=== PATIENT | female | born 1955 | race Caucasian/White ===

== ENCOUNTER 2025-02-01 16:00 | Observation (INO) ==
[2025-02-01 16:36] LABS: Hematocrit (blood only) 41.1 % (37.0-47.0); Hemoglobin 13.4 g/dl (12.0-16.0); Immature Granulocytes # (auto) 0.03 K/uL (0.01-0.20); Immature Granulocytes % (auto) 0.3 %; Mean Corpuscular Hemoglobin 27.9 pg (25.0-34.0); Mean Corpuscular Volume 85.4 fL (80.0-100.0); Platelet Count 284 K/uL (130-400); RDW Standard Deviation 39.7 fL (36.4-46.3); Red Blood Count 4.81 M/uL (4.20-5.40); White Blood Count 9.05 K/ul (4.8-10.8)
[2025-02-01 16:49] LABS: Alanine Aminotransferase 15.0 U/L (7-52); Albumin Globulin Ratio 1.5 (0.9-2); Alkaline Phosphatase 77.0 U/L (34-104); Anion Gap 5.0 (3-11); Bilirubin,Total 0.3 mg/dl (0.2-1.0); Blood Urea Nitrogen 19.0 mg/dl (6-23); Calcium 9.1 mg/dl (8.6-10.3); Carbon Dioxide 31.0 mmol/L (21-32); Chloride 104.0 mmol/L (98-107); Creatinine Clr Calc Pharmacy 91.8 ml/min; Globulin 2.8 gm/dl (2.5-4.0); Glucose 244.0 mg/dl (70-99(Fasting)); Potassium 3.8 mmol/L (3.5-5.1); Sodium 140.0 mmol/L (136-145); Total Protein 6.9 gm/dl (6.0-8.3)
--- NOTE | 2025-02-01 16:50 | XRay Report ---
EXAM: X-ray chest one-view not portable CLINICAL HISTORY: Shortness of breath while walking PRIORS: None TECHNIQUE: Frontal view chest FINDINGS: Patient slightly rotated. The chest is well-expanded. No airspace consolidation, effusion or congestive changes. Heart size is normal. No pneumothorax. Trachea is patent. Osseous structures demonstrate no acute abnormality. No radiopaque foreign body. IMPRESSION: No plain film evidence of an acute cardiopulmonary process. Electronically signed by Adeola Bustamante 02-01-2025 4:49 PM
[2025-02-01 17:00] LABS: INR 1.0 (0.9-1.1); Partial Thromboplastin Time 25 Seconds (21-31); Prothrombin Time 10.6 Seconds (9.0-12.0)
[2025-02-01] MEDS: OPTIRAY 320 125ml IV ONE (18:42)
--- NOTE | 2025-02-01 19:43 | CT Scan Report ---
EXAMINATION: CT angio chest PE protocol CLINICAL HISTORY: Dyspnea several weeks PRIORS: Chest radiograph today TECHNIQUE: Contiguous axial images were obtained through the chest with the use of intravenous contrast. Sagittal and coronal reformations are supplied. FINDINGS: The pulmonary arteries are well opacified Motion artifact noted through the chest and mediastinum. No central or segmental pulmonary embolism identified. Mild to moderate enlargement of the heart size. No pleural or pericardial effusion. No adenopathy. Trachea and mainstem bronchi are patent. Thyroid size is normal. In lung windows, no pneumonia, dominant mass or groundglass attenuation. Limited visualization of the upper abdomen shows hepatomegaly and fatty infiltration of the liver. In bone windows degenerative change with no acute osseous abnormality. IMPRESSION: 1. No CT evidence of acute cardiopulmonary process. 2. Mild cardiomegaly 3. Hepatomegaly and fatty infiltration of the liver Electronically signed by Adeola Bustamante 02-01-2025 7:42 PM
--- NOTE | 2025-02-01 19:58 | Emergency Department Note ---
Impression & Plan Dyspnea on exertion, Hypoxia, Chest pressure ED Provider Note NAME: CAROLIN YODER AGE: 69 SEX: Female INFORMANT: Patient ED PROVIDER(S): Felipe Zaman MD CHIEF COMPLAINT: Dyspnea on exertion and chest pain PLAN: Disposition: Admitted Outpatient prescription management: none Referral: None MEDICAL DECISION MAKING: Patient presented because of shortness of breath and chest discomfort that she described as pressure. This was with exertion. Saw PCP and O2 saturations were documented at 86%. Patient notes no prior lung problems. Workup was done. Patient was mildly hyperglycemic otherwise chemistries and cardiac troponin negative. BNP negative. Patient underwent CT PE study and this was negative. Patient did have septal and inferior Q waves noted on ECG. No ST elevation or depression. Further evaluation and management will be appropriate to evaluate this current situation. Consultation was made with Dr. Valentin Dalton of the [facility] service. Patient was evaluated in the ER for further management. Care/management discussed with: it manager Level of care consideration(s): After review of the information above and other included data, I feel the patient requires escalation of care to admission Triage Nursing notes: reviewed and agree them. Vital Signs: reviewed and remarkable for hypertension Additional History obtained from: none Chronic Medical/Social Conditions affecting care: Diabetes and hypertension Prior/ Outside/ External records reviewed: none Differential Diagnosis: Reactive airway disease, pneumonia, pneumothorax, COPD, CHF, infections, cardiac ischemia, pulmonary embolism, musculoskeletal, gastrointestinal, as well as other pathologies. Diagnostics, independently interpreted by me: ECG: Twelve-lead ECG reveals a normal sinus rhythm at 85 bpm. Septal Q wave in inferior Q wave present. No ST elevation. Cardiac Monitoring: Cardiac monitoring ordered by me: The patient was placed on continuous cardiac monitoring and observed. It revealed a normal sinus rhythm at 68 beats per minute without ectopy or evidence of dysrhythmia. Medical decision rules: none Imaging studies: Chest x-ray. Findings: A chest x-ray was performed and revealed no pneumothorax, effusion, infiltrate, pulmonary edema, free air under the diaphragm, or wide mediastinum. Impression: No acute disease. CT scan of the chest is negative for pulmonary embolus. I refer you to the EMR for further details. HPI: 69 year old Female arrives for evaluation of dyspnea on exertion. Patient was referred by her primary physician at the [facility] today due to low oxygen levels of 86%. Patient was there for 6-month checkup and noted over the last several weeks that she has been having significant dyspnea on exertion and shortness of breath. She is also getting chest pressure. Primary care physician saw the patient and was concerned. Checked oxygen level and it was low. Referred to the ER with concerns of possible PE or cardiac etiology. Patient notes a history of having some shortness of breath issues in the past but never had these types of symptoms like she has had with exertion over the last 3 weeks. Patient denies any current pain. Rest noted as relieving factors. Patient does note she has had some leg swelling. Pt denies LOC, headache, fevers, chills, diaphoresis, visual changes, neck pain, nausea, vomiting, abdominal pain, back pain, melena, hematochezia, urinary symptoms, numbness, weakness, lymphadenopathy, rash, or other complaints.. PAST MEDICAL HISTORY: See Below, diabetes, hypertension PAST SURGICAL HISTORY: See Below, SOCIAL HISTORY: See Below, non-smoker HOME MEDICATIONS: See Below ALLERGIES: See Below VITALS: See Below PHYSICAL EXAMINATION: GENERAL: Awake, alert, [id number], in no distress HENT: Normocephalic, atraumatic. Oropharynx unremarkable. EYES: Normal conjunctiva. Sclera non-icteric. NECK: Inspection normal. Non-tender. Supple. No nuchal rigidity. FROM. No masses. RESPIRATORY: Clear to auscultation. No wheezes. No rales. Normal respiratory effort. CARDIAC: Normal rate. Normal rhythm. No murmurs. No rubs. Extremities warm and well perfused. Pulses equal. No JVD. GI: Soft, non-distended. No tenderness to palpation. No rebound or guarding. No masses. RECTAL: Deferred. MUSCULOSKELETAL: Atraumatic. Chest examination reveals no tenderness. The back is symmetrical on inspection without obvious abnormality. There is no CVA tenderness to palpation. No joint edema. LOWER EXTREMITIES: Calves are equal size bilaterally and minimally tender. No palpable cords. Negative Homans' sign. Trace edema. No discoloration. NEURO: Normal sensorium. No sensory or motor deficits noted. SKIN: No rash or jaundice noted. PROCEDURES: none CRITICAL CARE: none OBSERVATION NOTE: none Past Med/Surg History Problem List (Updated 02/01/25 @ 19:58 by Felipe Zaman MD) Chest pressure (Acute) Hypoxia (Acute) Dyspnea on exertion (Acute) Fibromyalgia ERAN (obstructive sleep apnea) Venous insufficiency Diabetic neuropathy Depression with anxiety Hypertension Hypothyroidism History of breast biopsy Diabetes mellitus Surgical History H/O: hysterectomy H/O laparoscopy H/O arthroscopy of right knee History of esophagogastroduodenoscopy (EGD) H/O cystoscopy H/O colonoscopy Family History Mother Breast cancer Denies family history of Ovarian cancer Prostate cancer Heart disease Myocardial infarction Hypertension Social History Smoking Status: Never smoker Second Hand Exposure: No; Do You Dip or Chew Tobacco: No; Tobacco Cessation Education Requested by Patient: No Hx Alcohol Use: No Hx Substance Use: No Preferred Language: Arabic Communication Ability: Effective Allergy And Immunology Chief Required: No Beliefs That Will Affect Care: None marital status: Single Current Living Situation: Significant Other Current Living Situation Comment: Skills current occupational status: employed How many Children do You have: 2 Other Information That Helps Us Care for You: No Feels Safe at Home: Yes Safety Concerns: Feels Safe At This Time Childhood Exposure to Second-Hand Smoke: No Dental Care, Regularly: Yes Seatbelt Use: always Sunscreen Use: Yes Assistive Devices: CPAP and Glasses Allergies Allergies Allergy/AdvReac Type Severity Reaction Status Date / Time latex Allergy Anaphylaxis Verified 02/01/25 18:35 No Known Drug Allergies Allergy . Verified 02/01/25 18:35 Home Meds Home Medications Medication Instructions Recorded Confirmed CPAP Supplies 08/05/23 02/01/25 fluticasone propionate 50 2 spray intranasal DAILY 08/05/23 02/01/25 mcg/actuation nasal spray,suspension (Allergy Relief (fluticasone)) lancets 25 gauge 08/05/23 02/01/25 nitroglycerin 0.4 mg sublingual 0.4 mg sublingual Q5M PRN Chest 08/05/23 02/01/25 tablet Pain potassium gluconate 595 mg (99 mg) 595 mg PO DAILY 08/05/23 02/01/25 tablet furosemide 20 mg tablet 20 mg PO DAILY PRN Edema 02/01/25 02/01/25 insulin glargine 100 unit/mL (3 72 unit subcut QAM 02/01/25 02/01/25 mL) subcutaneous pen (Lantus Solostar U-100 Insulin) Previous Rx's Medication Instructions Recorded lancets (Accu-Chek Softclix #100 ea 10/04/23 Lancets) cyanocobalamin (vitamin B-12) 1,000 mcg sublingual DAILY #30 tabs 12/14/23 1,000 mcg sublingual tablet metformin 1,000 mg tablet 1,000 mg PO BID #360 tabs 01/03/24 pen needle, diabetic 32 gauge x #100 ea 03/08/24" (BD Mariaelena 2nd Gen Pen Needle) paroxetine HCl 40 mg tablet 40 mg PO DAILY #90 tabs 06/15/24 atorvastatin 40 mg tablet 40 mg PO DAILY #90 tabs 06/21/24 fenofibrate nanocrystallized 48 mg 48 mg PO DAILY #90 tabs 06/21/24 tablet levothyroxine 88 mcg tablet 88 mcg PO DAILY #90 tabs 06/21/24 (Levo-T) lisinopril 20 mg tablet 20 mg PO DAILY #30 tabs 06/21/24 lisinopril 20 1 tab PO DAILY #90 tabs 06/21/24 mg-hydrochlorothiazide 25 mg tablet omeprazole 40 mg capsule,delayed 40 mg PO DAILY #90 caps 06/21/24 release trazodone 100 mg tablet 100 mg PO DAILY #90 tabs 06/21/24 blood sugar diagnostic (True #100 ea 01/02/25 Metrix Glucose Test Strip) glimepiride 1 mg tablet 1 mg PO QAM #90 tabs 01/24/25 cyclobenzaprine 10 mg tablet 10 mg PO TID PRN muscle spasm #20 02/01/25 tabs magnesium oxide 400 mg (241.3 mg 400 mg PO DAILY #30 tabs 02/01/25 magnesium) tablet Results & Data (ED) Vital Signs Vital Signs - 24 hr 02/01/25 16:07 02/01/25 17:19 02/01/25 17:50 Pulse Rate 90 79 Pulse Rate [Left Finger] 83 Pulse Rhythm Pulse Rhythm [Left Finger] Regular Pulse Strength [Left Finger] Normal Respiratory Rate 17 20 Respiratory Effort / Characteristics Non-Labored Spontaneous Non-Labored Spontaneous Respiratory Depth Normal Normal Respiratory Pattern Regular Regular Blood Pressure 148/72 H Blood Pressure [Left Arm] 115/80 Blood Pressure Mean 97 Blood Pressure Mean [Left Arm] 91 Blood Pressure Position Sitting Blood Pressure Position [Left Arm] Sitting Pulse Oximetry 92 98 Oxygen Delivery Method Room Air Room Air Sepsis Recent Fever Within 48 Hours No Sepsis New/Unexplained Change in Mental Status N/A Sepsis Action Taken by Nursing No Action Required 02/01/25 19:00 02/01/25 19:15 02/01/25 19:15 Pulse Rate 76 Pulse Rate [Left Finger] 77 Pulse Rhythm Regular Pulse Rhythm [Left Finger] Regular Pulse Strength [Left Finger] Normal Respiratory Rate 18 18 Respiratory Effort / Characteristics Non-Labored Spontaneous Respiratory Depth Normal Respiratory Pattern Regular Blood Pressure Blood Pressure [Left Arm] 152/69 H Blood Pressure Mean Blood Pressure Mean [Left Arm] 96 Blood Pressure Position Blood Pressure Position [Left Arm] Semi-fowlers Pulse Oximetry 97 97 97 Oxygen Delivery Method Room Air Room Air Room Air Sepsis Recent Fever Within 48 Hours Sepsis New/Unexplained Change in Mental Status Sepsis Action Taken by Nursing Laboratory Data 02/01/25 16:19 02/02/25 09:08 Lab Results 02/01/25 02/01/25 Range/Units 16:19 18:16 WBC 9.05 (4.8-10.8) K/ul RBC 4.81 (4.20-5.40) M/uL Hgb 13.4 (12.0-16.0) g/dl Hct 41.1 (37.0-47.0) % MCV 85.4 (80.0-100.0) fL MCH 27.9 (25.0-34.0) pg MCHC 32.6 (32.0-36.0) g/dL RDW Std Deviation 39.7 (36.4-46.3) fL RDW Coeff of Romi 12.9 (11.5-14.5) % Plt Count 284 (130-400) K/uL MPV 9.1 L (9.4-12.4) fL Immature Gran % (Auto) 0.3 % Neut % (Auto) 65.6 % Lymph % (Auto) 26.4 % [place] % (Auto) 6.0 % Eos % (Auto) 1.3 % Baso % (Auto) 0.4 % Neut # (Auto) 5.93 (1.40-6.50) K/uL Lymph # (Auto) 2.39 (1.20-3.40) K/uL [place] # (Auto) 0.54 (0.11-0.59) K/uL Eos # (Auto) 0.12 (0.00-0.50) K/uL Baso # (Auto) 0.04 (0.00-0.20) K/uL Immature Gran # (Auto) 0.03 (0.01-0.20) K/uL PT 10.6 (9.0-12.0) Seconds INR 1.0 (0.9-1.1) APTT 25 (21-31) Seconds PTT Ratio 0.9 Sodium 140 (136-145) mmol/L Potassium 3.8 (3.5-5.1) mmol/L Chloride 104 (98-107) mmol/L Carbon Dioxide 31 (21-32) mmol/L Anion Gap 5 (3-11) BUN 19 (6-23) mg/dl Creatinine 0.82 (0.6-1.2) mg/dl Est Cr Clr Drug Dosing 91.8 ml/min eGFR 77.87 BUN/Creatinine Ratio 23.2 H (10-20) Glucose 244 H (70-99(Fasting)) mg/dl Calcium 9.1 (8.6-10.3) mg/dl Total Bilirubin 0.3 (0.2-1.0) mg/dl AST 14 (13-39) U/L ALT 15 (7-52) U/L Alkaline Phosphatase 77 (34-104) U/L Troponin I High Sens 3.9 (0-14) pg/ml B-Natriuretic Peptide 24 (0-100) pg/ml Total Protein 6.9 (6.0-8.3) gm/dl Albumin 4.1 (3.4-5.0) gm/dl Globulin 2.8 (2.5-4.0) gm/dl Albumin/Globulin Ratio 1.5 (0.9-2) Administered Medications Atorvastatin Calcium (Atorvastatin 40 Mg Tab) 40 mg PO DAILY RIZWAN Stop: 03/04/25 08:59 Last Admin: 02/02/25 08:38 Dose: 40 mg Documented By: CMP Cyanocobalamin (Cyanocobalamin (B-12) 500 Mcg Tablet) 1,000 mcg PO DAILY RIZWAN Stop: 03/04/25 08:59 Last Admin: 02/02/25 08:39 Dose: 1,000 mcg Documented By: TANVI Enoxaparin Sodium (Enoxaparin Inj 40 Mg/0.4 Ml Syr) 40 mg SQ PM RIZWAN Stop: 03/03/25 22:25 Last Admin: 02/02/25 01:03 Dose: 40 mg Documented By: TREV Fenofibrate (Fenofibrate Nanocrystallized 48 Mg Tablet) 48 mg PO DAILY RIZWAN Stop: 03/04/25 08:59 Last Admin: 02/02/25 08:39 Dose: 48 mg Documented By: TANVI Lisinopril/HCTZ (Lisinopril/Hctz 20/25mg 1 Tab) 1 tab PO DAILY RIZWAN Stop: 03/04/25 08:59 Last Admin: 02/02/25 08:39 Dose: 1 tab Documented By: TANVI Insulin Aspart (Insulin Aspart Per Unit Charge) 0 units SC ACHS RIZWAN Stop: 03/03/25 22:25 Last Admin: 02/02/25 12:12 Dose: 12 units Documented By: TANVI Co-signed By: RYAN Admin: 02/02/25 08:21 Dose: 11 units Documented By: TANVI Co-signed By: [facility] Admin: 02/01/25 23:08 Dose: Not Given Documented By: TREV Insulin Glargine (Lantus Per Unit Charge) 50 units SQ QAM RIWZAN Stop: 03/04/25 08:59 Last Admin: 02/02/25 08:45 Dose: 50 units Documented By: TANVI Co-signed By: RYAN Levothyroxine Sodium (Levothyroxine Sodium 88 Mcg Tablet) 88 [facility]cg [facility] Stop: 03/04/25 06:29 Last Admin: 02/02/25 06:02 Dose: 88 mcg Documented By: TREV Magnesium Oxide (Magnesium Oxide 400 Mg Tab) 400 mg PO DAILY RIZWAN Stop: 03/04/25 08:59 Last Admin: 02/02/25 08:39 Dose: 400 mg Documented By: TANVI Pantoprazole Sodium (Pantoprazole 40 Mg Tab) 40 mg PO DAILY RIZAWN Stop: 03/04/25 08:59 Last Admin: 02/02/25 08:39 Dose: 40 mg Documented By: TANVI Paroxetine HCl (Paroxetine Hcl 20 Mg Tab) 40 mg PO DAILY RIZWAN Stop: 03/04/25 08:59 Last Admin: 02/02/25 08:39 Dose: 40 mg Documented By: TANVI Trazodone HCl (Trazodone Hcl 100 Mg Tab) 100 mg PO DAILY RIZWAN Stop: 03/04/25 08:59 Last Admin: 02/02/25 08:38 Dose: 100 mg Documented By: TANVI Discontinued Medications Ioversol (Optiray 320 125ml) 119 ml IV ONCE ONE Stop: 02/01/25 18:42 Last Admin: 02/01/25 18:42 Dose: 119 ml Documented By: ERIC Ioversol (Optiray 320 100ml) 93 ml IV ONCE ONE Stop: 02/02/25 14:44 Last Admin: 02/02/25 14:44 Dose: 93 ml Documented By: GES Imaging Data Radiologist's Impression: Chest X-Ray 02/01/25 16:12 EXAM: X-ray chest one-view not portable CLINICAL HISTORY: Shortness of breath while walking PRIORS: None TECHNIQUE: Frontal view chest FINDINGS: Patient slightly rotated. The chest is well-expanded. No airspace consolidation, effusion or congestive changes. Heart size is normal. No pneumothorax. Trachea is patent. Osseous structures demonstrate no acute abnormality. No radiopaque foreign body. IMPRESSION: No plain film evidence of an acute cardiopulmonary process. Electronically signed by Adeola Bustamante 02-01-2025 4:49 PM Chest CTA 02/01/25 18:14 EXAMINATION: CT angio chest PE protocol CLINICAL HISTORY: Dyspnea several weeks PRIORS: Chest radiograph today TECHNIQUE: Contiguous axial images were obtained through the chest with the use of intravenous contrast. Sagittal and coronal reformations are supplied. FINDINGS: The pulmonary arteries are well opacified Motion artifact noted through the chest and mediastinum. No central or segmental pulmonary embolism identified. Mild to moderate enlargement of the heart size. No pleural or pericardial effusion. No adenopathy. Trachea and mainstem bronchi are patent. Thyroid size is normal. In lung windows, no pneumonia, dominant mass or groundglass attenuation. Limited visualization of the upper abdomen shows hepatomegaly and fatty infiltration of the liver. In bone windows degenerative change with no acute osseous abnormality. IMPRESSION: 1. No CT evidence of acute cardiopulmonary process. 2. Mild cardiomegaly 3. Hepatomegaly and fatty infiltration of the liver Electronically signed by Adeola Bustamante 02-01-2025 7:42 PM Discharge Plan Visit Data Chief Complaint: Referred by Doctor Stated Complaint: REF BY , ABNORMAL LABS ED Provider: Fleipe Zaman Discharge Problem: Dyspnea on exertion, Hypoxia, Chest pressure Patient Disposition: Admitted As Inpatient Condition: Good Discharge Instructions Interventions: ED Discharge Assessment Last Done: 02/01/25 22:01
--- NOTE | 2025-02-01 20:27 | History & Physical Report ---
Date of Service February 01, 2025 Assessment & Plan (1) Dyspnea on exertion: Plan: 69-year-old female with history of diabetes, hypertension, hyperlipidemia who presents with worsening dyspnea on exertion which occurred with her first episode of chest pressure. She was referred in by her PCP for dyspnea/chest pain evaluation. Dyspnea on exertion, chest pain,reportedly with hypoxia in the office of 86%. CTA is without acute findings. Worsening with exertion over several months. Experienced her first episode of chest discomfort with shortness of breath day of admission. Resolved after few minutes Patient did have a DSE 09/2023 which was negative for ischemia, did have brief chest pain during medication infusion, EF 60 to 65% without wall motion abnormalities at that time Patient of lower sternum reproduces her chest discomfort, she reports this is the exact same chest discomfort she experienced earlier in the day She does have increased risk factors for coronary disease including diabetes, hyperlipidemia, hypertension. No territorial ischemic EKG changes, troponin is normal Heart score moderate, is recommended for repeat stress evaluation ERAN CPAP nightly. Compliant with this at home Type 2 diabetes mellitus Continue insulin glargine 70 units every morning, SSI ordered based on basal requirements Goal BSG [id number] Accu-Cheks AC/at bedtime N.p.o. at midnight for stress test Hypertension Continue lisinoprilhydrochlorothiazide Hyperlipidemia Continue atorvastatin 40 mg DVT prophylaxis: Lovenox Disposition: Medical telemetry CODE STATUS: Full code (2) ERAN (obstructive sleep apnea): (3) Diabetic neuropathy: (4) Hypertension: (5) Hypothyroidism: (6) Diabetes mellitus: History of Present Illness Primary Care Provider: DO Regine Epperson is here after being referred by her PCP at her 6 month followup for evaluation of shortness of breath with a chest pain component. Negative stress test in 2023. She was hypoxic at the office today. Patient also reports worsening exertional dyspnea with an episode of chest pain today that was atypical for her. She reports when walking she had difficulty breathing and dyspnea, and some chest pressure. 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 'whatever is going on, its interfereing with my body. MOre tire,d have to rest longer, and short of breath and have to push myself.' Chest pressure just started today. Previously just had dyspnea on exertion, today also had some chest pressure. Has had some sharp chest pain under her L breast intermittently but that was not related to exertion and felt very different and went away quickly. No chest pressure/pain at rest. No orthopnea. Some mild leg swelling intermittently for al dorian time, do not think she has any increased leg swelling today Does feel like she strained her chest, did this once in the past. Chest pain is tender to palpation, palpation does reproduce the same pain that she felt with her shortness of breath today Had a strest test in 2011 which was normal. Does have hx of DM and HTN. Took insulin shot this morning (glargine) No history of TN/CAD/stroke No flu like sx. No fevers, chills, and sweats. Medical History: Reviewed Medications: Reviewed Surgical History: Reviewed Family history: Reviewed Allergies: Reviewed Social History: No tobacco use. Rare etoh use Code Status: Full Allergies Allergy/AdvReac Type Severity Reaction Status Date / Time latex Allergy Anaphylaxis Verified 02/01/25 18:35 No Known Drug Allergies Allergy . Verified 02/01/25 18:35 Home Medications Medication Instructions Recorded Confirmed Type CPAP Supplies 08/05/23 02/01/25 History fluticasone propionate 50 2 spray intranasal DAILY 08/05/23 02/01/25 History mcg/actuation nasal spray,suspension (Allergy Relief (fluticasone)) lancets 25 gauge 08/05/23 02/01/25 History nitroglycerin 0.4 mg sublingual 0.4 mg sublingual Q5M PRN Chest 08/05/23 02/01/25 History tablet Pain potassium gluconate 595 mg (99 mg) 595 mg PO DAILY 08/05/23 02/01/25 History tablet lancets (Accu-Chek Softclix #100 ea 10/04/23 02/01/25 Rx Lancets) cyanocobalamin (vitamin B-12) 1,000 mcg sublingual DAILY #30 tabs 12/14/23 02/01/25 Rx 1,000 mcg sublingual tablet metformin 1,000 mg tablet 1,000 mg PO BID #360 tabs 01/03/24 02/01/25 Rx pen needle, diabetic 32 gauge x #100 ea 03/08/24 02/01/25 Rx 5/32" (BD Mariaelena 2nd Gen Pen Needle) paroxetine HCl 40 mg tablet 40 mg PO DAILY #90 tabs 06/15/24 02/01/25 Rx atorvastatin 40 mg tablet 40 mg PO DAILY #90 tabs 06/21/24 02/01/25 Rx fenofibrate nanocrystallized 48 mg 48 mg PO DAILY #90 tabs 06/21/24 02/01/25 Rx tablet levothyroxine 88 mcg tablet 88 mcg PO DAILY #90 tabs 06/21/24 02/01/25 Rx (Levo-T) lisinopril 20 mg tablet 20 mg PO DAILY #30 tabs 06/21/24 02/01/25 Rx lisinopril 20 1 tab PO DAILY #90 tabs 06/21/24 02/01/25 Rx mg-hydrochlorothiazide 25 mg tablet omeprazole 40 mg capsule,delayed 40 mg PO DAILY #90 caps 06/21/24 02/01/25 Rx release trazodone 100 mg tablet 100 mg PO DAILY #90 tabs 06/21/24 02/01/25 Rx blood sugar diagnostic (True #100 ea 01/02/25 02/01/25 Rx Metrix Glucose Test Strip) glimepiride 1 mg tablet 1 mg PO QAM #90 tabs 01/24/25 02/01/25 Rx cyclobenzaprine 10 mg tablet 10 mg PO TID PRN muscle spasm #20 02/01/25 02/01/25 Rx tabs furosemide 20 mg tablet 20 mg PO DAILY PRN Edema 02/01/25 02/01/25 History insulin glargine 100 unit/mL (3 72 unit subcut QAM 02/01/25 02/01/25 History mL) subcutaneous pen (Lantus Solostar U-100 Insulin) magnesium oxide 400 mg (241.3 mg 400 mg PO DAILY #30 tabs 02/01/25 02/01/25 Rx magnesium) tablet Past Med/Surg History Problem List (Updated 02/01/25 @ 19:58 by Felipe Zaman MD) Chest pressure (Acute) Hypoxia (Acute) Dyspnea on exertion (Acute) Fibromyalgia ERAN (obstructive sleep apnea) Venous insufficiency Diabetic neuropathy Depression with anxiety Hypertension Hypothyroidism History of breast biopsy Diabetes mellitus Surgical History H/O: hysterectomy H/O laparoscopy H/O arthroscopy of right knee History of esophagogastroduodenoscopy (EGD) H/O cystoscopy H/O colonoscopy Family History Mother Breast cancer Denies family history of Ovarian cancer Prostate cancer Heart disease Myocardial infarction Hypertension Social History Smoking Status: Never smoker Second Hand Exposure: No; Hx Alcohol Use: Yes (social) Hx Substance Use: No Preferred Language: Icelandic marital status: Single Current Living Situation: Alone Current Living Situation Comment: Skills current occupational status: employed How many Children do You have: 2 Feels Safe at Home: Yes Childhood Exposure to Second-Hand Smoke: No Dental Care, Regularly: Yes Seatbelt Use: always Sunscreen Use: Yes Physical Exam Physical Exam: General: A&Ox3. NAD. Cooperative. HEENT: Atraumatic, normocephalic. Vision and hearing grossly intact. Pulm: CTAB A&P. -wheezes, -rales, -rhonchi. Symmetrical chest rise. No increased work of breathing. No respiratory distress. Cardiac: RRR, -mrg. Radial pulses intact and symmetrical. Inferior sternum is tender to palpation, palpation reproduces the same pain she experienced earlier in the day per patient. No JVD Abdominal: Nontender, nondistended, soft. BS present. Extremities: No lower extremity edema Results & Data Results & Data Vital Signs (Past 12 Hours) Vital Signs Pulse Pulse Resp BP BP Pulse Ox O2 Del Method 02/01/25 19:15 76 18 97 Room Air 02/01/25 19:15 97 Room Air 02/01/25 19:00 77 18 152/69 H 97 Room Air 02/01/25 17:50 79 02/01/25 17:19 83 20 115/80 98 Room Air 02/01/25 16:07 90 17 148/72 H 92 Room Air PG Care Time/CCT Total # of Minutes Spent Total Time Spent with Patient: Total time spent is greater than 50% in coordination of care (as documented) at patient's floor/unit and/or counseling patient: Coding Level of Care Code 74390 INT INP/OBS CARE 3/75MIN Diagnoses Dyspnea on exertion R06.09 ERAN (obstructive sleep apnea) G47.33 Diabetic neuropathy E11.40 Hypertension I10 Hypothyroidism E03.9 Diabetes mellitus E11.9
[2025-02-01] MEDS ORDERED: CYCLOBENZAPRINE HCL 10 MG TAB PO PRN (22:26)
[2025-02-01] MEDS ORDERED: ACETAMINOPHEN 325 MG TAB PO PRN (22:26)
[2025-02-01] MEDS ORDERED: GLUCOSE 10 TAB/TUBE PO PRN (22:26)
[2025-02-01] MEDS ORDERED: GLUCOSE 40% GEL 15 GM TUBE PO PRN (22:26)
[2025-02-01] MEDS ORDERED: NITROGLYCERIN SL 0.4 MG/TAB TAB SL PRN (22:26)
[2025-02-01] MEDS ORDERED: DEXTROSE 50% 50 ML SYRINGE IV PRN (22:26)
[2025-02-01] MEDS ORDERED: CARBOHYDRATES FOR HYPOGLYCEMIA PO PRN (22:26)
[2025-02-01] MEDS ORDERED: GLUCAGON FOR INJ 1 MG VIAL SQ PRN (22:26)
[2025-02-01] MEDS: INSULIN ASPART PER UNIT CHARGE SC SCH (23:08)
[2025-02-02] MEDS: ENOXAPARIN INJ 40 MG/0.4 ML SYR SQ SCH (01:03)
[2025-02-02] MEDS: LEVOTHYROXINE SODIUM 88 MCG TABLET PO SCH (06:02)
[2025-02-02] MEDS: ATORVASTATIN 40 MG TAB PO SCH (08:38)
[2025-02-02] MEDS: CYANOCOBALAMIN (B-12) 500 MCG TABLET PO SCH (08:39)
[2025-02-02] MEDS: LISINOPRIL/HCTZ 20/25MG 1 TAB PO SCH (08:39)
[2025-02-02] MEDS: FENOFIBRATE NANOCRYSTALLIZED 48 MG TABLET PO SCH (08:39)
[2025-02-02] MEDS: MAGNESIUM OXIDE 400 MG TAB PO SCH (08:39)
[2025-02-02] MEDS: LANTUS PER UNIT CHARGE SQ SCH (08:45)
[2025-02-02 11:08] VITALS: PULSE 68
[2025-02-02 11:29] LABS: Appearance Urine Clear (Clear); Glucose Urine UA Negative (Negative)
[2025-02-02 12:51] LABS: Anion Gap 11.0 (3-11); Blood Urea Nitrogen 17.0 mg/dl (6-23); Calcium 9.0 mg/dl (8.6-10.3); Carbon Dioxide 24.0 mmol/L (21-32); Chloride 103.0 mmol/L (98-107); Creatinine Clr Calc Pharmacy 99.5 ml/min; Glucose 232.0 mg/dl (70-99(Fasting)); Lipase 36.0 U/L (11-82); Potassium 4.0 mmol/L (3.5-5.1); Sodium 138.0 mmol/L (136-145)
[2025-02-02] MEDS: OPTIRAY 320 100ml IV ONE (14:44)
[2025-02-02 15:24] VITALS: BP 147/79; RESP 19; TEMP 98.1; O2SAT 95
--- NOTE | 2025-02-02 16:06 | CT Scan Report ---
HISTORY: Abdominal pain radiating from front to back. TECHNIQUE: Helical CT imaging of the abdomen and pelvis was performed with IV contrast. Images are presented in axial, sagittal, and coronal reformats. COMPARISON: None. FINDINGS: Lung Bases/Inferior Mediastinum: Unremarkable Liver: Hepatic steatosis and hepatomegaly.The liver measures 22.2 cm in craniocaudal dimension. Hypodense subcentimeter lesion in the central liver on series 2 image 24 measures 0.9 cm and is too small to accurately characterize. This favors a small cyst or hemangioma statistically. Gallbladder: Surgically absent. Spleen: Unremarkable Adrenals: Unremarkable Pancreas: Unremarkable Kidneys: Unremarkable Stomach/Bowel: Small hiatal hernia. Small bowel loops are normal in caliber. Normal caliber appendix in the right pelvis. The colon is normal in caliber. Metallic clip for foreign body in the Left lower quadrant on series 2 image 42. Lymph nodes: Unremarkable Vasculature: No abdominal aortic aneurysm. Mild atherosclerotic vascular disease. Pelvis: Mild anterior bladder wall thickening and mild associated inflammation. The uterus is absent. No free pelvic fluid. Soft Tissues: Small fat-containing umbilical hernia. Soft tissues of the body wall are otherwise unremarkable. Bones: moderate degenerative changes of the hips and pelvis. IMPRESSION: * Mild bladder wall thickening and associated inflammation. This could represent acute cystitis. Recommend correlation with urinalysis. * Hepatic steatosis and hepatomegaly. Subcentimeter hypodense lesion in the central liver is too small to accurately characterize. This favors a small cyst or hemangioma statistically. * Radiopaque density in the left lower quadrant of the abdomen on series 2 image 42 Is of uncertain etiology and could represent a surgical clip. Recommend correlation with patient history. * Additional chronic and/or incidental findings as detailed above. ACT 112: Positive. There are findings on this exam that require communication between the performing entity and the patient following Patient Test Result Information Act ([place] ACT 112) guidelines. Electronically signed by Felipe Hernandez 02-02-2025 4:05 PM
--- NOTE | 2025-02-02 21:42 | Discharge Summary ---
Discharge Summary Date of Service February 02, 2025 Principal Dx & Hospital Course #1 = Principal Diagnosis (1) Dyspnea on exertion: 69 years old female with PMH of FULL CODE @ home, morbid obesity with BMI 44.9 (height 170.2 cm; weight 130.0 kg), ERAN on nocturnal CPAP, GERD on omeprazole 40mg PO daily, major depression on home-scheduled paroxetine 40mg PO daily, insomnia on home-scheduled trazodone 100mg PO daily, hyperlipidemia on home-scheduled atorvastatin 40mg PO daily and fenofibrate 48mg PO daily, HTN on home-scheduled lisinopril 20mg - HCTZ 25mg PO daily, insulin-dependent DM2 with HbA1c 7.3% (11/06/2024, 7:29am) on home-scheduled glimepiride 1mg PO qam, metformin 1000mg PO bid, and lantus 72 units SQ qam, hypothyroidism on home- scheduled synthroid 88 units SQ daily, and chronic urinary incontinence for the past several months, s/p bladder prolapse requiring "bladder tack" @ [facility] (1990), who presented to [facility] ER on 02/01/2025 with complaints of progressively worsening dyspnea on exertion over the past several months, NOT at rest. Patient subsequently reported her first episode of chest pressure, which lasted a few minutes and then spontaneously resolved without any pharmacologic intervention, at home, at rest, on 02/01/2025. Patient subsequently was hypoxic in her PCP's office with a resting O2 saturation of 86% on 02/01/2025. Patient was subsequently referred to [facility] ER on 02/01/2025 by her PCP for her complaints of progressively worsening dyspnea on exertion over the past several months /first episode of chest pressure on 02/01/2025. Of note, patient underwent dobutamine stress ECHO (09/24/2023, 10:01am. [facility] CARDS Dr. Nick Napoles) which was negative for ischemia; patient did have brief chest pain during dobutamine infusion; EF 60 to 65% without wall motion abnormalities at that time. Of note, palpation of patient's lower sternum reproduces her chest discomfort, she reports this is the exact same chest discomfort she experienced earlier in the day Of note, patient does have risk factors for coronary disease including diabetes, hyperlipidemia, hypertension. Of note, EKG #1 (02/01/2025, 4:20pm): NSR @ 86, WI 182, QTC 435, q in III, aVF, V1, V2, no acute ST depressions/elevations (by my review). Of note, EKG #2 (02/02/2025, 9:18am): NSR @ 78, WI 184, QTC 389, q in III, aVF, V1, V2, no acute ST depressions/elevations (by my review). Of note, troponin-I #1 3.9 pg/mL (02/01/2025, 4:19pm) and troponin-I #2 4.6 pg/mL (02/02/2025, 9:08am) are negative/normal. Heart score = 4 points (e.g., 2 points for age > 65 years; 2 points for more than 3 risk factors (e.g., HTN, DM, hyperlipidemia, obesity), which represents a moderate risk for Major Acute Cardiac Events (MACE) of 12% to 16.6% Hence, despite suspected diagnosis of costochondritis causing this patient reproducible musculo-skeletal discomfort and being chest pain-free in [facility] ER, and troponin-I #1 and #2 being negative/normal, and EKG #1 and EKG #[address] depressions/elevations, patient was placed in OBSERVATION on the hospitalist service @ [facility] on 02/01/2025 with the following diagnosis: 1. Atypical chest pain, s/p DARSHANA, most likely due to costochondritis. Of final note, patient could NOT undergo nuclear stress testing while in [facility] from 02/01/2025 to 02/02/2025 due to 02/02/2025 holiday and 02/02/2025 holiday weekend. Hence, patient was discharged back to her home on 02/02/2025 and was advised to coordinate outpatient nuclear stress testing with her PCP Dr. Alina Piña, starting with a phone call to [facility] Nuclear Medicine Department on Wednesday morning (02/05/2025, 8:00am). Patient reports that she will comply with this recommendation. In the interim, patient will continue with secondary prophylaxis against CAD utilizing her home-scheduled atorvastatin 40mg PO daily and fenofibrate 48mg PO daily. 2. Chronic urinary incontinence for the past several months, s/p bladder prolapse requiring "bladder tack" @ [facility] (1990). Of note, patient reports that she takes no medications at home to mitigate her chronic urinary incontinence for the past several months. Patient concedes that many times, she cannot arrive at the bathroom/toilet to urinate, and instead, urinates in her pants or in her bed. Patient denies antecedent/coincident fevers, chills, diaphoresis, dysuria, hematuria, flank pain, nausea, vomiting, diarrhea, etc., to suggest acute cystitis / acute UTI. Subsequently, patient underwent U/A with microscopy (02/02/2025, 11:15am) which revealed clear yellow urine, LE-, nitrite-. Hence, patient does not have acute cystitis / acute UTI. Subsequently, patient underwent CT abd/pelvis with IV contrast (02/02/2025, 1:58pm) which revealed: * Mild bladder wall thickening and associated inflammation. This could represent acute cystitis. Recommend correlation with urinalysis. * Hepatic steatosis and hepatomegaly. Subcentimeter hypodense lesion in the central liver is too small to accurately characterize. This favors a small cyst or hemangioma statistically. * Radiopaque density in the left lower quadrant of the abdomen on series 2 image 42 Is of uncertain etiology and could represent a surgical clip. Recomme nd correlation with patient history. I surmise that the "mild bladder wall thickening" represents post-operative changes after patient underwent "bladder tack" to treat bladder prolapse @ [facility] (1990). I do not suspect recurrence of bladder prolapse. Hence, I have opted to prescribe patient the anticholinergic medication, oxybutynin 5mg PO bid prn urinary incontinence / bladder spasms. To this end, patient's [id number], [address], [place] [address], received an electronic prescription for oxybutynin 5mg PO bid prn urinary incont inence / bladder spasms, #60 tablets, no refills, on 02/02/2025, prior to hospital discharge home on 02/02/2025. In addition, I warned the patient of the potential side effects of the anticholinergic medication, oxybutynin, including dizziness, falls, dry mouth, urinary retention causing acute UTI, and I advised patient further that if she were to develop any of these potential side effects of the anticholinergic medication, oxybutynin, that she should stop taking the anticholinergic medication, oxybutynin, immediately, and solicit recommendations from her PCP Dr. Alina Piña regarding alternative medications for the treatment of patient's chronic urinary incontinence. One of the principal reasons that I selected oxybutynin, despite its anticholinergic side effects profile, is that it is available in generic form as ditropan, and costs $29.11 to $37.11 for a 90 tablet supply (e.g., 1.5 months supply) using the coupon available online at [employer]. In contrast, the newer, non-anticholinergic, beta-adrenergic agent known as Myrbetriq is also available in generic form as mirabegron, but it is more expensive at $193.85 for a 30 tablet supply (e.g., 1 month supply) using the coupon available online at [employer]. I informed the patient about Myrbetriq and how it does NOT have the anticholinergic side effects as it is not an anticholinergic drug, and therefore, is probably safer for the patient to take, but the patient immediately decided to start with the more inexpensive drug, the anticholinergic medication, oxybutynin, 5mg PO bid prn urinary incontinence/bladder spasms. I concur. Stay tuned. 3. Insulin-dependent DM2 with HbA1c 7.3% (11/06/2024, 7:29am) on home- scheduled glimepiride 1mg PO qam, metformin 1000mg PO bid, and lantus 72 units SQ qam. Patient received her home-scheduled lantus 72 units SQ qam, carbohydrate consistent diet, hospital-started lispro sliding scale qac + qhs, and POC glucose qac + qhs while in [facility]. Patient will continue her home-scheduled lantus 72 units SQ qam, carbohydrate consistent diet, and POC glucose qac + qhs on hospital discharge home on 02/02/2025. Patient will not continue hospital-started lispro sliding scale qac + qhs on hospital discharge home on 02/02/2025. Instead, patient will resume her home-scheduled glimepiride 1mg PO qam on ho spital discharge home on 02/02/2025. Patient was advised to HOLD OFF resuming her home-scheduled metformin 1000mg PO bid for the next 72 hours, given her exposure to IV contrast involved in performing CT abd/pelvis with IV contrast (02/02/2025, 1:58pm), in order to avoid the potential risk of developing post-IV contrast nephropathy if patient were to inadvertently restart her home-scheduled metformin 1000mg PO bid immediately. Hence, patient was advised that she can restart her home-scheduled metformin 1000mg PO bid on 02/05/2025, 1:58pm. Patient reports that she will comply with this recommendation. Other secondary/minor medical issues included: ERAN CPAP nightly. Compliant with this at home. Asymptomatic with no complaints of daytime somnolence at home or at [facility]. Hence, patient will continue with CPAP nocturnal on hospital discharge home on 02/02/2025. Hypertension Patient received her home-scheduled lisinopril 20mg hydrochlorothiazide 25mg PO daily with modest control of BP (cf., discharge BP 147/79 on 02/02/2025, 5:14pm) while in [facility]. Patient will continue this same medication on hospital discharge home on 02/02/2025. Hyperlipidemia Patient received her home-scheduled atorvastatin 40 mg PO daily while in [facility]. Patient will continue this same medication on hospital discharge home on 02/02/2025. Patient did not receive, but will resume, her home-scheduled fenofibrate 48mg PO daily on hospital discharge home on 02/02/2025. DVT prophylaxis: Lovenox Disposition: Medical telemetry CODE STATUS: Full code. ACLS was never performed. There were no adverse events noted with this hospitalization. Condition of patient remains fair. Patient was discharged home on 02/02/2025. Of final note, patient could NOT undergo nuclear stress testing while in [facility] from 02/01/2025 to 02/02/2025 due to 02/02/2025 holiday and 02/02/2025 holiday weekend. Hence, patient was discharged back to her home on 02/02/2025 and was advised to coordinate outpatient nuclear stress testing with her PCP Dr. Alina Piña, starting with a phone call to [facility] Nuclear Medicine Department on Wednesday (02/05/2025, 8:00am). Patient reports that she will comply with this recommendation. (2) ERAN (obstructive sleep apnea): (3) Diabetic neuropathy: (4) Hypertension: (5) Hypothyroidism: (6) Diabetes mellitus: (7) Costochondritis: (8) Urinary incontinence: Admission HPI Per Admitting Provider Regine is here after being referred by her PCP at her 6 month followup for evaluation of shortness of breath with a chest pain component. Negative stress test in 2023. She was hypoxic at the office today. Patient also reports worsening exertional dyspnea with an episode of chest pain today that was atypical for her. She reports when walking she had difficulty breathing and dyspnea, and some chest pressure. 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 'whatever is going on, its interfereing with my body. MOre tire,d have to rest longer, and short of breath and have to push myself.' Chest pressure just started today. Previously just had dyspnea on exertion, today also had some chest pressure. Has had some sharp chest pain under her L breast intermittently but that was not related to exertion and felt very different and went away quickly. No chest pressure/pain at rest. No orthopnea. Some mild leg swelling intermittently for al dorian time, do not think she has any increased leg swelling today Does feel like she strained her chest, did this once in the past. Chest pain is tender to palpation, palpation does reproduce the same pain that she felt with her shortness of breath today Had a strest test in 2011 which was normal. Does have hx of DM and HTN. Took insulin shot this morning (glargine) No history of NM/CAD/stroke No flu like sx. No fevers, chills, and sweats. Medical History: Reviewed Medications: Reviewed Surgical History: Reviewed Family history: Reviewed Allergies: Reviewed Social History: No tobacco use. Rare etoh use Code Status: Full Discharge Exam Constitutional General: Comfortable, cooperative, coherent. Wide awake and alert. Not confused, lethargic, or obtunded. Patient speaks in complete, fluent, and articulate sentences without pause, interruption, cough, or wheeze. HEENT: Normocephalic, atraumatic. Pupils equally round and reactive to light. No nystagmus, gaze paresis, anisocoria, miosis, mydriasis, hyphema, scleral injection, conjunctivitis, or pterygium. No otorrhea. No pharyngeal erythema, edema, or discharge. Neck: Supple, no stridor, bruit, goiter, or hepato-jugular reflux. Jugular venous pressure is estimated to be 3 cm above the sternal angle of Asael, which in turn, is 5 cm above the level of the right atrium; with jugular venous pressure estimated to be 8 cm, then, there is no jugular venous distention on 02/02/2025. Lymphatics: No cervical (anterior/posterior), supraclavicular, infraclavicular, axillary, epitrochlear, or inguinal adenopathy. Chest: Symmetric rise and fall with respirations. Non-tender to palpation. Lungs: Clear to auscultation and percussion. No audible expiratory wheeze, egophony, pectoriloquy, increase in tactile fremitus, or flatness/dullness to percussion at the bases. Heart: RRR. S1 and S2 noted. No S3 or S4 summation gallop. No tripartite friction rub. Grade II/ early systolic murmur @ LLSB without radiation to the carotids, axilla, or back, and which remains invariant in regards to the respiratory cycle. Abdomen: Soft, non-tender, non-distended. No rebound, guarding, Vasquez's sign, or organomegaly. Bowel sounds auscultated in all 4 quadrants. Extremities: No clubbing, cyanosis, or edema in upper extremities or lower extremities bilaterally. 2+ pedal pulses bilaterally. Skin: No decubitus ulcer or enanthem. Genito-urinary: No urethral discharge. No kiser catheter. Neurology: Alert and oriented in regards to person, place, time, and situation. DTR+. 5/5 motor strength in all 4 extremities, both proximally and distally. No myoclonus, tremors, or tics. Psychiatry: No homicidal ideation. No suicidal ideation. No flat affect; smiles appropriately. Discharge Plan Discharge Items Patient Disposition: Home - Self-Care Reason For Visit: DYSPNEA,CHEST PAIN Discharge Diagnosis: 1. Atypical chest pain, s/p DARSHANA, with patient to call PCP Dr. Alina Piña on Wednesday (02/05/2025 am) to coordinate outpatient nuclear stress testing. 2. Chronic urinary incontinence, with patient to start oxybutynin 5mg PO bid prn urinary incontinence/bladder spasms on 02/02/2025 at home. Condition on Discharge: Good Activity: Resume your previous activity Lifting: Gradually increase as tolerated Bathing: No limitations Sexual Activity: When tolerated Exercise/Sports: Gradually increase as tolerated Driving/Machine Use: No limitations Weightbearing: Full weightbearing Non-emergency contact: Primary Care Provider Call non-emergency contact if: you have any medication questions Follow-up/Referrals: Alina Piña DO [Primary Care Provider] - Diet: Heart Healthy Addtl Attending Provider Instructions: See your PCP Dr. Alina Piña within 5-7 days for routine follow up visit. Pending Studies at Discharge: Yes Studies:: Outpatient nuclear stress test to be ordered on Wednesday morning (02/05/2025 am) @ [facility], closed today, February 02, 2025. Stand-Alone Forms: [facility], Smoking Cessation Medications and DC Order Prescriptions: New oxybutynin chloride 5 mg tablet 5 mg PO BID PRN (Reason: bladder spasms) Qty: 60 0RF Continued cyanocobalamin (vitamin B-12) 1,000 mcg tablet, sublingual 1,000 mcg sublingual DAILY Qty: 30 3RF paroxetine HCl 40 mg tablet 40 mg PO DAILY Qty: 90 1RF (DME) True Metrix Glucose Test Strip Strip See Rx Instructions .Route Qty: 100 2RF Rx Instructions: Test blood sugar 2 times daily AM/PM glimepiride 1 mg tablet 1 mg PO QAM Qty: 90 1RF Rx Instructions: administer with breakfast fluticasone propionate [Allergy Relief (fluticasone)] 50 mcg/actuation spray,suspension 2 spray intranasal DAILY Rx Instructions: administer into each nostril (DME) CPAP Supplies Misc See Rx Instructions .Route Rx Instructions: As directed (DME) lancets 25 gauge misc See Rx Instructions .Route Rx Instructions: As directed potassium gluconate 595 mg (99 mg) tablet 595 mg PO DAILY nitroglycerin 0.4 mg tablet, sublingual 0.4 mg sublingual Q5M PRN (Reason: Chest Pain) Rx Instructions: do not exceed 3 doses per episode (DME) pen needle, diabetic [BD Mariaelena 2nd Gen Pen Needle] 32 gauge x 5/32" needle See Rx Instructions .Route Qty: 100 3RF Rx Instructions: Inject once daily cyclobenzaprine 10 mg tablet 10 mg PO TID PRN (Reason: muscle spasm) Qty: 20 0RF magnesium oxide 400 mg (241.3 mg magnesium) tablet 400 mg PO DAILY Qty: 30 0RF (DME) lancets [Accu-Chek Softclix Lancets] Misc See Rx Instructions .Route Qty: 100 0RF Rx Instructions: check blood sugar once daily atorvastatin 40 mg tablet 40 mg PO DAILY Qty: 90 3RF fenofibrate nanocrystallized 48 mg tablet 48 mg PO DAILY Qty: 90 3RF levothyroxine [Levo-T] 88 mcg tablet 88 mcg PO DAILY Qty: 90 3RF omeprazole 40 mg capsule,delayed release(DR/EC) 40 mg PO DAILY Qty: 90 3RF trazodone 100 mg tablet 100 mg PO DAILY Qty: 90 3RF lisinopril-hydrochlorothiazide 20-25 mg tablet 1 tab PO DAILY Qty: 90 3RF insulin glargine [Lantus Solostar U-100 Insulin] 100 unit/mL (3 mL) insulin pen 72 unit subcut QAM MDD 100 Held metformin 1,000 mg tablet 1,000 mg PO BID Qty: 360 2RF Hold Instructions: Resume on 02/05/25. Hold OFF metformin 1000mg PO bid for the next 72 hours as you received IV contrast with your CT abd/pelvis (02/02/2025, 1:58pm), in order to avoid risk of developing IV contrast nephropathy. Restart metformin 1000mg PO bid on 02/05/2025, 1:58pm). Discontinued lisinopril 20 mg tablet 20 mg PO DAILY Qty: 30 2RF furosemide 20 mg tablet 20 mg PO DAILY PRN (Reason: Edema) Discharge Orders: Discharge Order (Routine); Ordered 02/02/25 Ordered By: Evan Golden Admission Data Admit Date/Time: 02/01/25 20:49 Attending Provider: Evan Golden Admit Provider: Valentin Dalton Primary Care Provider: Alina Piña Other Providers: Valentin Dalton Other Interventions: Discharge Summary Assessment (RN) Last Done: 02/02/25 17:14 Hospital Stay Data Consultations 02/01/25 20:37 ED Decision to Admit Stat Diagnostic Imagining Performed 02/01/25 18:14 CT angio chest PE protocol Stat 02/02/25 13:58 CT abd pelvis IV con only Stat Pending Results Patient Have Any Pending Studies at Discharge: Yes Discharge Instructions Given to Patient (Per Discharging Provider) See your PCP Dr. Alina Piña within 5-7 days for routine follow up visit. Total Time Total Time Spent Total Time Spent (In Minutes): 35 minutes. Of this time period, 19 minutes were spent in coordinating patient's discharge. Coding Level of Care Code 86441 INP/OBS DISCH >30 MIN Diagnoses Dyspnea on exertion R06.09 ERAN (obstructive sleep apnea) G47.33 Diabetic neuropathy E11.40 Hypertension I10 Hypothyroidism E03.9 Diabetes mellitus E11.9 Costochondritis M94.0 Urinary incontinence R32
--- NOTE | 2025-02-04 14:20 | Electrocardiogram Report ---
Test Reason : Blood Pressure : */* mmHG Vent. Rate : 78 BPM Atrial Rate : 78 BPM P-R Int : 184 ms QRS Dur : 86 ms QT Int : 342 ms P-R-T Axes : -7 -9 92 degrees QTcB Int : 389 ms Normal sinus rhythm Low voltage QRS Septal infarct (cited on or before 01-Feb-2025) Inferior infarct (cited on or before 01-Feb-2025) Abnormal ECG When compared with ECG of 01-Feb-2025 16:20, (unconfirmed) No significant change was found Confirmed by Randy Claire ([id number]) on 02/04/2025 2:20:13 PM Referred By: Alina Piña Confirmed By: Randy Claire
--- NOTE | 2025-02-04 22:20 | Electrocardiogram Report ---
Test Reason : Blood Pressure : */* mmHG Vent. Rate : 86 BPM Atrial Rate : 86 BPM P-R Int : 182 ms QRS Dur : 90 ms QT Int : 364 ms P-R-T Axes : 43 3 88 degrees QTcB Int : 435 ms Normal sinus rhythm Septal infarct , age undetermined Inferior infarct , age undetermined Abnormal ECG No previous ECGs available Confirmed by Randy Claire ([id number]) on 02/04/2025 10:19:36 PM Referred By: Alina Piña Confirmed By: Randy Claire
== END 2025-02-02 17:43 | disposition home or self-care (01) | DRG 204 ==
LOC: ED 16:00 → 4W 20:49 → INTOOBSV 20:49 → SUATTDRO 20:49 → 4W 22:01